=== PATIENT | female | born 1945 | race Caucasian/White ===

== ENCOUNTER 2022-08-02 09:18 | Observation (INO) ==
--- NOTE | 2022-08-02 09:26 | Emergency Department Note ---
Abdominal Pain HPI General Chief Complaint: Abdominal Pain Stated Complaint: gallbladder issue Time Seen by Provider: 08/02/22 09:26 Source: patient and family (Son) Mode of arrival: ambulatory Limitations: no limitations History of Present Illness HPI Narrative: Narrative: 77-year-old female presents to the emergency department complaining of right upper quadrant abdominal pain. States she was seen for this earlier and had an abdominal ultrasound on 07/01 which was interpreted as unremarkable. Patient followed up with her primary care provider who decided to order a HIDA scan. She had a HIDA scan on 310 which showed a nonfunctioning gallbladder. She presents to the emergency department because of continued right upper quadrant abdominal pain. Patient states that she has been unable to eat or drink much because of the pain. States she has lost 14 pounds. She rates her pain at the moment as a 4 on a 0-10 but states that this weekend it was a 10-12 on a 0-to-10 scale. She states that the pain is worse after she eats. Past medical history: Type 2 diabetes, hypertension, thyroid disease, neuropat hy. Allergies: Penicillin, gabapentin. Related Data Home Medications Medication Instructions Recorded Confirmed atenolol 25 mg tablet 25 mg PO DAILY 08/02/22 08/02/22 fluoxetine 10 mg capsule 10 mg PO DAILY 08/02/22 08/02/22 fluticasone furoate 100 1 inh inhalation DAILY 08/02/22 08/02/22 mcg-vilanterol 25 mcg/dose inhalation powder (Breo Ellipta) insulin detemir U-100 100 unit/mL 25 unit subcut HS 08/02/22 08/02/22 (3 mL) subcutaneous pen (Levemir FlexTouch U-100 Insulin) levothyroxine 88 mcg tablet 88 mcg PO ACB 08/02/22 08/02/22 losartan 100 1 tab PO DAILY 08/02/22 08/02/22 mg-hydrochlorothiazide 25 mg tablet metformin 1,000 mg tablet 1,000 mg PO BID 08/02/22 08/02/22 Previous Rx's Medication Instructions Recorded amitriptyline 10 mg tablet See Rx Instructions .Route 08/26/19 .COMPLEX ##90 albuterol sulfate 90 mcg/actuation See Rx Instructions .Route 04/07/20 aerosol inhaler .COMPLEX #90 grams blood sugar diagnostic (Contour #100 ea 05/13/20 Next Test Strips) insulin aspart U-100 100 unit/mL 5 unit (0.05 mL) subcut TID #15 mL 12/25/21 (3 mL) subcutaneous pen (Novolog FlexPen U-100 Insulin aspart) amlodipine 5 mg tablet See Rx Instructions .Route 03/25/22 .COMPLEX #90 tabs rosuvastatin 10 mg tablet (Crestor) 10 mg PO QDAY #90 tabs 03/25/22 spironolactone 100 mg tablet 100 mg PO QAM #90 tabs 04/06/22 omeprazole 40 mg capsule,delayed 40 mg PO BID #60 caps 07/16/22 release hydrocodone 10 mg-acetaminophen 1 tab PO Q4H PRN pain #180 tabs 07/22/22 325 mg tablet Allergies Allergy/AdvReac Type Severity Reaction Status Date / Time gabapentin Allergy Unknown Unknown Verified 08/02/22 09:24 Penicillins Allergy Unknown unk Verified 08/02/22 09:24 metals Allergy Unknown Unknown Uncoded 07/16/22 09:26 Review of Systems ROS ROS Narrative: Narrative: All systems ED: reviewed and negative except as stated. [facility] Narrative Patient History Narrative: Narrative: Medical/Surgical/Family History All Active Problems (Updated 08/02/22 @ 23:16 by Juan Givens MD) Acute cholecystitis (Acute) Cholecystitis, acute with cholelithiasis (Acute) Postprandial nausea (Acute) Impacted cerumen of left ear (Acute) RUQ abdominal pain (Acute) Chronic back pain (Chronic) Dermatitis (Acute) Irregular heart rhythm (Acute) Impacted cerumen of right ear (Acute) Post-nasal drip (Acute) Resistant hypertension (Chronic) Nonsuppurative otitis media of right ear (Acute) Obesity (Acute) Nasal lesion (Acute) Rib pain on left side (Acute) History of cataract surgery (Chronic ~07/2017) Edema of both feet (Chronic) Rash (Chronic) Thyroid disease (Chronic) Neurological disease (Chronic) Osteoporosis (Chronic) Arthritis (Chronic) Poor sleep (Chronic) Heart palpitations (Chronic) Arthralgia (Chronic) Memory loss (Chronic) Fatigue (Chronic) Depression (Chronic) GERD (gastroesophageal reflux disease) (Chronic) Hypertension (Chronic) Hyperlipidemia (Chronic) Hypothyroidism (Chronic) Alkaline phosphatase elevation (Chronic) Vitamin D deficiency (Chronic) Candidiasis of skin (Chronic) Knee pain (Chronic) 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) Coccygeal pain (Chronic) Type 2 diabetes mellitus with diabetic neuropathy (Chronic) Otitis externa (Chronic) Shortness of breath (Chronic) Stasis dermatitis (Chronic) Bradycardia (Chronic) Postmenopausal (Chronic) Encounter for therapeutic drug level monitoring (Chronic) Tobacco dependence (Chronic) Bronchitis, acute (Chronic) Chronic pain (Chronic) Medical History (Updated 08/02/22 @ 23:16 by Juan Givens MD) Alkaline phosphatase elevation Arthralgia Arthritis Bradycardia Bronchitis, acute Candidiasis of skin Chronic pain Coccygeal pain Depression Edema of both feet Encounter for therapeutic drug level monitoring Fatigue GERD (gastroesophageal reflux disease) Heart palpitations Hyperlipidemia Hypertension Hypothyroidism Knee pain Memory loss Neurological disease Osteoporosis Otitis externa Peripheral autonomic neuropathy due to diabetes mellitus Poor sleep Postmenopausal Rash Shortness of breath Stasis dermatitis Thyroid disease Tobacco dependence Type 2 diabetes mellitus with diabetic neuropathy Vitamin D deficiency Surgical History History of cataract surgery (~07/2017) Family History Mother HTN (hypertension) Diabetes Alcoholism Arthritis Osteoporosis Alzheimer disease Father , age 81 HTN (hypertension) Diabetes Alcoholism Glaucoma Heart disease Metastasis Grandmother Osteoporosis maternal Heart disease paternal HTN (hypertension) paternal Stroke paternal Grandfather Heart disease Alcoholism Social History Smoking Status: Current every day smoker Exam Narrative Narrative: Narrative: General Limitations: no limitations General appearance: Present alert and in distress Head Head: Present atraumatic and normocephalic Eye Eye: Present normal appearance; Absent scleral icterus ENT ENT: Present normal oropharynx Neck Neck: Present normal inspection Respiratory Respiratory: Present normal lung sounds bilaterally; Absent respiratory distress Cardiovascular Cardiovascular: Present regular rate and normal rhythm Adbominal Abdominal: Present soft and tenderness (Right upper quadrant) Extremities Extremities: Absent pedal edema or pretibial edema Back Back: Present normal inspection; Absent tenderness Neurological Neurological: Present alert and oriented X3 Psychiatric Psychiatric: Present normal affect and normal mood Skin Skin: Present warm (WNL) and dry Course Vital Signs Vital signs: Vital Signs Temperature 97.4 F 08/02/22 09:22 Pulse Rate 81 08/02/22 09:22 Respiratory Rate 18 08/02/22 09:22 Blood Pressure 163/63 08/02/22 09:22 Pulse Oximetry (%) 98 08/02/22 09:22 Oxygen Delivery Method Room Air 08/02/22 09:22 Temperature 98.0 F 08/02/22 19:19 Pulse Rate 57 L 08/02/22 19:19 Respiratory Rate 16 08/02/22 19:19 Blood Pressure 120/64 08/02/22 19:19 Pulse Oximetry (%) 96 08/02/22 19:19 Oxygen Delivery Method Room Air 08/02/22 19:19 [facility] MDM Narrative Medical decision making narrative: Narrative: Elderly female with right upper quadrant. Differential diagnosis includes acute biliary colic, acute cholecystitis, muscle strain, pancreatitis, other Patient's HIDA scan showed 1% ejection fraction whereas normal is greater than 35%. Case was discussed with general surgeon on-call who stated the patient had acute cholecystitis. Requested that I write holding orders and that he would see the patient and take her to the operating room. Sepsis Sepsis Identified: No Lab Data 08/02/22 10:03 Labs: Lab Results 08/02/22 08/02/22 08/02/22 Range/Units 10:03 10:03 10:06 WBC 11.9 H (4.5-11.0) K/mcL RBC 4.34 (3.59-5.38) M/mcL Hgb 13.5 (11.2-15.7) g/dL Hct 39.3 (34.1-44.9) % POC Hct 42.0 (36-48) MCV 90.6 (80.0-100.0) fL MCH 31.1 (26.0-34.0) pg MCHC 34.4 (31.0-36.0) g/dL RDW 13.2 (11.5-14.5) % Plt Count 363 (140-440) K/mcL MPV 9.3 (8.8-12.5) fL Immature Gran % (Auto) 0.5 (0.0-0.5) % Neut % (Auto) 71.7 (38.0-78.0) % Lymph % (Auto) 17.1 (15.5-49.0) % Alfalfa % (Auto) 9.9 (1.0-12.0) % Eos % (Auto) 0.4 (0.0-7.0) % Baso % (Auto) 0.4 (0.0-2.0) % Lymph # (Auto) 2.04 (1.50-4.80) K/mcL Alfalfa # (Auto) 1.18 H (0.10-0.90) K/mcL Eos # (Auto) 0.05 (0.00-0.70) K/mcL Baso # (Auto) 0.05 (0.00-0.30) K/mcL Immature Gran # 0.06 H (0.00-0.05) K/mcl Absolute Neutrophils 8.52 H (1.80-8.00) K/mcL POC Sodium 130 L (133-145) POC Potassium 4.5 (3.3-5.1) POC Chloride 98 (96-108) POC Total CO2 21.0 L (22-30) POC BUN 35 H (6-20) POC Creatinine 1.4 H (0.6-1.2) POC Glucose 97 (70-105) POC WB Ioniz Calcium 1.24 (1.16-1.32) Total Bilirubin 0.2 (0.1-1.0) mg/dL Direct Bilirubin < 0.2 (0-0.3) mg/dL AST 14 (<32) U/L ALT 6 (<40) U/L Alkaline Phosphatase 61 (39-117) U/L Total Protein 6.8 (5.9-8.4) gm/dL Albumin 3.9 (3.2-5.2) gm/dL Globulin 2.9 (2.2-3.7) gm/dL Lipase 18 (7-60) U/L Discharge Plan Patient/Caregiver Discharge Instructions Pt seen by HISTOLOGIST TECHNOLOGIST/PA only: No Clinical Impression: Acute cholecystitis Patient Disposition: Xfer As Outpt/Obs ([facility]) Condition: Fair Discharge Date/Time: 08/02/22 12:04
[2022-08-02] MEDS ORDERED: ONDANSETRON 4 MG/2 ML VIAL IV ONE (09:46)
[2022-08-02] MEDS ORDERED: morphine 2 MG/ML VIAL IV ONE (09:49)
[2022-08-02 10:11] LABS: POC Calcium, Ionized 1.24 (1.16-1.32); POC Creatinine 1.4 (0.6-1.2); POC Potassium 4.5 (3.3-5.1)
[2022-08-02 10:43] LABS: Basophils # (Auto) 0.05 K/mcL (0.00-0.30); Basophils % (Auto) 0.4 % (0.0-2.0); Eosinophils # (Auto) 0.05 K/mcL (0.00-0.70); Eosinophils % (Auto) 0.4 % (0.0-7.0); Hematocrit 39.3 % (34.1-44.9); Hemoglobin 13.5 g/dL (11.2-15.7); Lymphocytes # (Auto) 2.04 K/mcL (1.50-4.80); Lymphocytes % (Auto) 17.1 % (15.5-49.0); Mean Cell Volume 90.6 fL (80.0-100.0); Mean Corpuscular HGB Conc 34.4 g/dL (31.0-36.0); Mean Platelet Volume 9.3 fL (8.8-12.5); Monocytes # (Auto) 1.18 K/mcL (0.10-0.90); Monocytes % (Auto) 9.9 % (1.0-12.0); Neutrophils % (Auto) 71.7 % (38.0-78.0); Platelet Count 363 K/mcL (140-440); RBC 4.34 M/mcL (3.59-5.38); Red Cell Distribution Width 13.2 % (11.5-14.5); WBC 11.9 K/mcL (4.5-11.0)
[2022-08-02 11:06] LABS: ALT/SGPT 6 U/L (<40); AST/SGOT 14 U/L (<32); Albumin 3.9 gm/dL (3.2-5.2); Alkaline Phosphatase 61 U/L (39-117); Bilirubin,Direct < 0.2 mg/dL (0-0.3); Bilirubin,Total 0.2 mg/dL (0.1-1.0); Globulin 2.9 gm/dL (2.2-3.7)
[2022-08-02] MEDS ORDERED: ONDANSETRON 4 MG/2 ML VIAL IV PRN (11:33)
[2022-08-02] MEDS ORDERED: KETOROLAC 30 MG/ML VIAL IV PRN (11:33)
[2022-08-02] MEDS ORDERED: 0.9 % SODIUM CHLORIDE 1,000 ML IV ONE (11:35)
[2022-08-02] MEDS ORDERED: 0.9 % SODIUM CHLORIDE 1,000 ML IV SCH (11:45)
[2022-08-02] MEDS ORDERED: CEFEPIME 2 GM VIAL IV SCH ×2 (14:00→23:00)
--- NOTE | 2022-08-02 14:01 | General Surg History&Physical ---
HPI History of Present Illness Patient information: Note initiated : 08/02/22 at 1:51 pm Service Date, if different from initiated Date: [] Patient: Peace Balbuena a 77 y/o F admitted on 08/02/22 for gallbladder issue/Cholecystitis. Chief Complaint: [] Chief complaint: Right upper quadrant pain with nausea vomiting History of present illness: Ms. Balbuena is a 77 year old F with history of recurrent postprandial abdominal pain for at least 2 months. She had pain with nausea and vomiting after any p.o. intake including liquids and solids. She estimates that she has lost about 14 pounds. She was seen by her primary provider in early June and an ultrasound was ordered. The ultrasound was interpreted as being negative for abnormality including inflammation or stones. She had a HIDA scan which showed an ejection fraction of 1%. Patient has continued to be symptomatic with all p.o. intake and has severe right upper quadrant pain and tenderness. She has acute cholecystitis with dehydration and is scheduled for laparoscopic cholecystectomy in the morning. Constitutional Constitutional: Present anorexia, fatigue, lethargy, malaise, weakness and w eight loss (14+ pounds) Gastrointestinal Gastrointestinal: Present abdominal pain, bloating, change in bowel habits, constipation, early satiety, heartburn, nausea and vomiting Neurological Neurological: Present numbness, paresthesias, restless legs, sensory deficit and tingling Allergic/Immunologic Allergic/Immunologic: Absent tongue swelling, throat swelling, uticaria, wheezing or lip swelling PFSH PFSH All Active Problems (Updated 08/02/22 @ 13:59 by Jerri Price MD) Cholecystitis, acute with cholelithiasis (Acute) Postprandial nausea (Acute) Impacted cerumen of left ear (Acute) RUQ abdominal pain (Acute) Chronic back pain (Chronic) Dermatitis (Acute) Irregular heart rhythm (Acute) Impacted cerumen of right ear (Acute) Post-nasal drip (Acute) Resistant hypertension (Chronic) Nonsuppurative otitis media of right ear (Acute) Obesity (Acute) Nasal lesion (Acute) Rib pain on left side (Acute) History of cataract surgery (Chronic ~07/2017) Edema of both feet (Chronic) Rash (Chronic) Thyroid disease (Chronic) Neurological disease (Chronic) Osteoporosis (Chronic) Arthritis (Chronic) Poor sleep (Chronic) Heart palpitations (Chronic) Arthralgia (Chronic) Memory loss (Chronic) Fatigue (Chronic) Depression (Chronic) GERD (gastroesophageal reflux disease) (Chronic) Hypertension (Chronic) Hyperlipidemia (Chronic) Hypothyroidism (Chronic) Alkaline phosphatase elevation (Chronic) Vitamin D deficiency (Chronic) Candidiasis of skin (Chronic) Knee pain (Chronic) 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) Coccygeal pain (Chronic) Type 2 diabetes mellitus with diabetic neuropathy (Chronic) Otitis externa (Chronic) Shortness of breath (Chronic) Stasis dermatitis (Chronic) Bradycardia (Chronic) Postmenopausal (Chronic) Encounter for therapeutic drug level monitoring (Chronic) Tobacco dependence (Chronic) Bronchitis, acute (Chronic) Chronic pain (Chronic) Medical History (Updated 08/02/22 @ 13:59 by Jerri Price MD) Alkaline phosphatase elevation Arthralgia Arthritis Bradycardia Bronchitis, acute Candidiasis of skin Chronic pain Coccygeal pain Depression Edema of both feet Encounter for therapeutic drug level monitoring Fatigue GERD (gastroesophageal reflux disease) Heart palpitations Hyperlipidemia Hypertension Hypothyroidism Knee pain Memory loss Neurological disease Osteoporosis Otitis externa Peripheral autonomic neuropathy due to diabetes mellitus Poor sleep Postmenopausal Rash Shortness of breath Stasis dermatitis Thyroid disease Tobacco dependence Type 2 diabetes mellitus with diabetic neuropathy Vitamin D deficiency Surgical History History of cataract surgery (~07/2017) Family History Mother HTN (hypertension) Diabetes Alcoholism Arthritis Osteoporosis Alzheimer disease Father , age 81 HTN (hypertension) Diabetes Alcoholism Glaucoma Heart disease Metastasis Grandmother Osteoporosis maternal Heart disease paternal HTN (hypertension) paternal Stroke paternal Grandfather Heart disease Alcoholism Social History marital status: occupational status: disabled smoking status: Current every day smoker MEDS/ALLERGIES Home Medications and Allergies Home Medications Medication Instructions Recorded Confirmed Type amitriptyline 10 mg tablet See Rx Instructions .Route 08/26/19 08/02/22 Rx .COMPLEX ##90 albuterol sulfate 90 mcg/actuation See Rx Instructions .Route 04/07/20 08/02/22 Rx aerosol inhaler .COMPLEX #90 grams blood sugar diagnostic (Contour #100 ea 05/13/20 08/02/22 Rx Next Test Strips) insulin aspart U-100 100 unit/mL 5 unit (0.05 mL) subcut TID #15 mL 12/25/21 08/02/22 Rx (3 mL) subcutaneous pen (Novolog FlexPen U-100 Insulin aspart) amlodipine 5 mg tablet See Rx Instructions .Route 03/25/22 08/02/22 Rx .COMPLEX #90 tabs rosuvastatin 10 mg tablet (Crestor) 10 mg PO QDAY #90 tabs 03/25/22 08/02/22 Rx spironolactone 100 mg tablet 100 mg PO QAM #90 tabs 04/06/22 08/02/22 Rx omeprazole 40 mg capsule,delayed 40 mg PO BID #60 caps 07/16/22 08/02/22 Rx release hydrocodone 10 mg-acetaminophen 1 tab PO Q4H PRN pain #180 tabs 07/22/22 08/02/22 Rx 325 mg tablet atenolol 25 mg tablet 25 mg PO DAILY 08/02/22 08/02/22 History fluoxetine 10 mg capsule 10 mg PO DAILY 08/02/22 08/02/22 History fluticasone furoate 100 1 inh inhalation DAILY 08/02/22 08/02/22 History mcg-vilanterol 25 mcg/dose inhalation powder (Breo Ellipta) insulin detemir U-100 100 unit/mL 25 unit subcut HS 08/02/22 08/02/22 History (3 mL) subcutaneous pen (Levemir FlexTouch U-100 Insulin) levothyroxine 88 mcg tablet 88 mcg PO ACB 08/02/22 08/02/22 History losartan 100 1 tab PO DAILY 08/02/22 08/02/22 History mg-hydrochlorothiazide 25 mg tablet metformin 1,000 mg tablet 1,000 mg PO BID 08/02/22 08/02/22 History Allergies Allergy/AdvReac Type Severity Reaction Status Date / Time gabapentin Allergy Unknown Unknown Verified 08/02/22 09:24 Penicillins Allergy Unknown unk Verified 08/02/22 09:24 metals Allergy Unknown Unknown Uncoded 07/16/22 09:26 Physical Examination Vital Signs Vital signs: Temp Pulse Resp BP Pulse Ox O2 Del Method 98.1 F 58 L 16 158/58 96 Room Air 08/02/22 12:00 08/02/22 12:00 08/02/22 12:00 08/02/22 12:00 08/02/22 12:00 08/02/22 12:00 General physical appearance General physical exam: well developed, well nourished, no distress, moderate pain and chronically ill Eyes Eye exam: PERRL and normal ocular movement ENT ENT exam: normal mucosa, no hearing loss, no congestion and poor senior care Head Head exam IM: Present atraumatic, normal inspection and normocephalic Neck Neck exam: no masses, no bruits, trachea midline, no lymphadenopathy and no venous distension Cardiovascular Cardiovascular exam IM: Present normal rate and rhythm, RRR, +S1 and +S2; Absent JVD or tachycardia Respiratory Respiratory exam: normal expansion, normal respiratory effort and clear to auscultation Abdomen Abdomen: Present tender (Exquisite tenderness right upper quadrant and epigast rium) Integumentary Integumentary: Present no rash, no growths and no abnormal pigmentation Neurologic Neurologic: Present normal coordination and deep tendon reflexes Musculoskeletal Musculoskeletal: Present normal gait and normal posture Psychiatric Psychiatric: Present oriented to time, oriented to person, oriented to place, speech is normal and memory intact Results Labs 08/02/22 10:03 Labs: Abnormal lab results 08/02/22 08/02/22 Range/Units 10:03 10:06 WBC 11.9 H (4.5-11.0) K/mcL [place] # (Auto) 1.18 H (0.10-0.90) K/mcL Immature Gran # 0.06 H (0.00-0.05) K/mcl Absolute Neutrophils 8.52 H (1.80-8.00) K/mcL POC Sodium 130 L (133-145) POC Total CO2 21.0 L (22-30) POC BUN 35 H (6-20) POC Creatinine 1.4 H (0.6-1.2) Diabetes panel 08/02/22 Range/Units 10:03 AST 14 (<32) U/L ALT 6 (<40) U/L Alkaline Phosphatase 61 (39-117) U/L Total Protein 6.8 (5.9-8.4) gm/dL Albumin 3.9 (3.2-5.2) gm/dL Calcium panel 08/02/22 Range/Units 10:03 Albumin 3.9 (3.2-5.2) gm/dL Adrenal panel 08/02/22 Range/Units 10:03 Total Bilirubin 0.2 (0.1-1.0) mg/dL AST 14 (<32) U/L ALT 6 (<40) U/L Alkaline Phosphatase 61 (39-117) U/L Total Protein 6.8 (5.9-8.4) gm/dL Albumin 3.9 (3.2-5.2) gm/dL All other labs normal. A/P Assessment and plan (1) Cholecystitis, acute with cholelithiasis: Status: Acute (2) Hypothyroidism: Status: Chronic Qualifiers: Hypothyroidism type: unspecified Qualified Code(s): E03.9 - Hypothyroidism, unspecified (3) Peripheral autonomic neuropathy due to diabetes mellitus: Status: Chronic Qualifiers: Diabetes mellitus type: type 2 Qualified Code(s): E11.43 - Type 2 diabetes mellitus with diabetic autonomic (poly)neuropathy (4) Type 2 diabetes mellitus with diabetic neuropathy: Status: Chronic Qualifiers: Diabetes mellitus alf insulin use: without middle school history teacher use Qualified Code(s): E11.40 - Type 2 diabetes mellitus with diabetic neuropathy, unspecified Plan Cefepime 2 g IVevery 8 Dilaudid 1 mg IV every 2 hours as needed Promethazine 12.5 mg IV every 4 hours nausea Normal saline 1 L now and 150 cc/h Full liquids as tolerated N.p.o. after midnight Consent for laparoscopic cholecystectomy to be performed tomorrow Sepsis Sepsis Identified: No Time Spent With Patient Time: Total time spent is greater than 50% in coordination of care (as documented) at patient's floor/unit and/or counseling patient:
[2022-08-02] MEDS ORDERED: HYDROmorphone 1 MG/ML SYRINGE IV PRN (14:16)
[2022-08-02] MEDS ORDERED: PROMETHAZINE 25 MG/ML VIAL IV PRN (14:17)
[2022-08-02] MEDS ORDERED: ALBUTEROL SULFATE 60 PUFF INHALER INH PRN (14:30)
--- NOTE | 2022-08-02 14:44 | XRay Report ---
HISTORY: Preop for cholecystectomy FINDINGS: The lungs are clear. The heart, mediastinum, tyra and pleura are normal. There has been no significant change since 06/17/21. IMPRESSION: Normal chest. Interpreted and Authenticated by: Daniel Dao 08/02/22
[2022-08-02] MEDS ORDERED: DEXTROSE 31 GM ORAL.SUSP PO PRN (14:56)
[2022-08-02] MEDS ORDERED: DEXTROSE 50% 50 ML VIAL IV PRN (14:56)
[2022-08-02] MEDS: 0.9 % SODIUM CHLORIDE 1,000 ML IV SCH ×2 (16:43→23:27)
[2022-08-02] MEDS: INSULIN LISPRO 1 UNIT/0.01 ML UNIT SQ SCH ×2 (16:44→21:38)
[2022-08-02] MEDS: amLODIPine 5 MG TABLET PO SCH (16:44)
[2022-08-02] MEDS ORDERED: INSULIN LISPRO 1 UNIT/0.01 ML UNIT SQ SCH (17:30)
--- NOTE | 2022-08-02 18:40 | EKG ---
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
[2022-08-02] MEDS: AMITRIPTYLINE 10 MG TABLET PO SCH (21:38)
[2022-08-02] MEDS: INSULIN GLARGINE, HUMAN 1 UNIT/0.01 ML SQ SCH (21:39)
[2022-08-02] MEDS: ACETAMINOPHEN 500 MG/50 ML BAG IV PRN (23:27)
[2022-08-03] MEDS ORDERED: IPRATROPIUM/ALBUTEROL 3 ML AMPUL.NEB NEB PRN ×2 (06:00→13:41)
[2022-08-03] MEDS ORDERED: SCOPOLAMINE 1 PATCH PATCH TOPICAL PRN (06:00)
[2022-08-03] MEDS: 0.9 % SODIUM CHLORIDE 1,000 ML IV SCH ×4 (06:05→22:49)
[2022-08-03 06:32] LABS: Basophils # (Auto) 0.05 K/mcL (0.00-0.30); Basophils % (Auto) 0.5 % (0.0-2.0); Eosinophils # (Auto) 0.08 K/mcL (0.00-0.70); Eosinophils % (Auto) 0.8 % (0.0-7.0); Hematocrit 34.4 % (34.1-44.9); Hemoglobin 11.5 g/dL (11.2-15.7); Lymphocytes # (Auto) 3.33 K/mcL (1.50-4.80); Lymphocytes % (Auto) 34.8 % (15.5-49.0); Mean Cell Volume 91.7 fL (80.0-100.0); Mean Corpuscular HGB Conc 33.4 g/dL (31.0-36.0); Mean Platelet Volume 9.4 fL (8.8-12.5); Monocytes # (Auto) 0.92 K/mcL (0.10-0.90); Monocytes % (Auto) 9.6 % (1.0-12.0); Neutrophils % (Auto) 53.9 % (38.0-78.0); Platelet Count 324 K/mcL (140-440); RBC 3.75 M/mcL (3.59-5.38); Red Cell Distribution Width 13.2 % (11.5-14.5); WBC 9.6 K/mcL (4.5-11.0)
[2022-08-03 07:10] LABS: ALT/SGPT < 5 U/L (<40); AST/SGOT 13 U/L (<32); Albumin 3.3 gm/dL (3.2-5.2); Albumin/Globulin Ratio 1.3 (1.0-2.3); Alkaline Phosphatase 48 U/L (39-117); Bilirubin,Direct < 0.2 mg/dL (0-0.3); Bilirubin,Total 0.2 mg/dL (0.1-1.0); Blood Urea Nitrogen 19 mg/dL (8-23); Calcium 8.9 mg/dL (8.6-10.4); Carbon Dioxide 21 mmol/L (22-30); Chloride 105 mmol/L (96-108); Globulin 2.5 gm/dL (2.2-3.7); Glomerular Filtration Rate 71; Glucose 61 mg/dL (70-105); Lactate Dehydrogenase 116 U/L (135-225); Phosphorous 2.2 mg/dL (2.5-4.5); Triglycerides 124 mg/dL (<150); Uric Acid 5.9 mg/dL (2.5-8.0)
[2022-08-03] MEDS: INSULIN LISPRO 1 UNIT/0.01 ML UNIT SQ SCH ×4 (07:39→20:41)
[2022-08-03] MEDS: LEVOTHYROXINE 88 MCG TABLET PO SCH (08:08)
[2022-08-03] MEDS: SPIRONOLACTONE 25 MG TABLET PO SCH (08:08)
[2022-08-03] MEDS: FLUoxetine HCL 10 MG CAPSULE PO SCH (08:08)
[2022-08-03] MEDS: ATENOLOL 25 MG TABLET PO SCH (08:08)
[2022-08-03] MEDS: HYDROCHLOROTHIAZIDE 25 MG TABLET PO SCH (08:08)
[2022-08-03] MEDS: LOSARTAN 50 MG TABLET PO SCH (08:08)
[2022-08-03] MEDS: amLODIPine 5 MG TABLET PO SCH (08:08)
[2022-08-03] MEDS: FLUTICASONE FUROATE VILANTEROL INH SCH (08:14)
[2022-08-03] MEDS ORDERED: LIDOCAINE HCL/PF 100 MG/5 ML SYRINGE IV ONE (12:31)
[2022-08-03] MEDS ORDERED: SUCCINYLCHOLINE 20 MG/ML ML IV ONE (12:31)
[2022-08-03] MEDS ORDERED: PROPOFOL 200 MG/20 ML VIAL IV ONE (12:31)
[2022-08-03] MEDS ORDERED: GLYCOPYRROLATE 0.2 MG/ML VIAL IV ONE (12:31)
[2022-08-03] MEDS ORDERED: MIDAZOLAM 2 MG/2 ML VIAL ONE (12:31)
[2022-08-03] MEDS ORDERED: DEXAMETHASONE 10 MG/ML VIAL ONE (12:31)
[2022-08-03] MEDS ORDERED: MAGNESIUM SULFATE 2 GM/50 ML BAG IV ONE (12:31)
[2022-08-03] MEDS ORDERED: ROCURONIUM 10 MG/ML ML IV ONE (12:31)
[2022-08-03] MEDS ORDERED: ONDANSETRON 4 MG/2 ML VIAL ONE (12:31)
[2022-08-03] MEDS ORDERED: fentaNYL 100 MCG/2 ML VIAL IV ONE (12:31)
[2022-08-03] MEDS ORDERED: CEFEPIME 2 GM VIAL IV SCH (12:45)
--- NOTE | 2022-08-03 13:38 | Brief Operative Note ---
Brief Operative Note Date of procedure: 08/03/22 Pre-op diagnosis: acute cholecystitis Post-op diagnosis: other (acute and chronic cholecystitis) Procedure: laparoscopic cholecystectomy Grafts/Implants: No Anesthesia: GETA Findings: dilated gall bladder Complications: none Surgeon: Jerri Price Estimated blood loss (cc): 5 Specimens Removed/Pathology: none sent Condition: stable Disposition: PACU
[2022-08-03] MEDS ORDERED: fentaNYL 100 MCG/2 ML VIAL IV PRN (13:41)
[2022-08-03] MEDS ORDERED: ONDANSETRON 4 MG/2 ML VIAL IV PRN (13:41)
[2022-08-03] MEDS ORDERED: ACETAMINOPHEN 1,000 MG/100 ML BAG IV ONE (13:54)
[2022-08-03] MEDS: ACETAMINOPHEN 500 MG/50 ML BAG IV PRN (18:59)
[2022-08-03] MEDS: INSULIN GLARGINE, HUMAN 1 UNIT/0.01 ML SQ SCH (20:40)
[2022-08-03] MEDS: AMITRIPTYLINE 10 MG TABLET PO SCH (20:40)
[2022-08-03] MEDS: CEFEPIME 2 GM VIAL IV SCH (21:16)
[2022-08-04] MEDS: ACETAMINOPHEN 500 MG/50 ML BAG IV PRN (02:25)
[2022-08-04] MEDS: CEFEPIME 2 GM VIAL IV SCH ×2 (05:30→14:20)
[2022-08-04] MEDS: 0.9 % SODIUM CHLORIDE 1,000 ML IV SCH (05:40)
[2022-08-04 06:54] LABS: ALT/SGPT 17 U/L (<40); AST/SGOT 34 U/L (<32); Albumin 3.3 gm/dL (3.2-5.2); Albumin/Globulin Ratio 1.4 (1.0-2.3); Alkaline Phosphatase 47 U/L (39-117); Bilirubin,Direct < 0.2 mg/dL (0-0.3); Bilirubin,Total 0.2 mg/dL (0.1-1.0); Blood Urea Nitrogen 11 mg/dL (8-23); Calcium 8.5 mg/dL (8.6-10.4); Carbon Dioxide 20 mmol/L (22-30); Chloride 101 mmol/L (96-108); Globulin 2.4 gm/dL (2.2-3.7); Glomerular Filtration Rate 71; Glucose 271 mg/dL (70-105); Lactate Dehydrogenase 155 U/L (135-225); Phosphorous 0.9 mg/dL (2.5-4.5); Triglycerides 66 mg/dL (<150); Uric Acid 3.5 mg/dL (2.5-8.0)
[2022-08-04] MEDS: LEVOTHYROXINE 88 MCG TABLET PO SCH (07:27)
[2022-08-04] MEDS: INSULIN LISPRO 1 UNIT/0.01 ML UNIT SQ SCH ×2 (07:27→11:15)
[2022-08-04] MEDS: ATENOLOL 25 MG TABLET PO SCH (08:44)
[2022-08-04] MEDS: amLODIPine 5 MG TABLET PO SCH (08:44)
[2022-08-04] MEDS: SPIRONOLACTONE 25 MG TABLET PO SCH (08:45)
[2022-08-04] MEDS: LOSARTAN 50 MG TABLET PO SCH (08:45)
[2022-08-04] MEDS: FLUoxetine HCL 10 MG CAPSULE PO SCH (08:45)
[2022-08-04] MEDS: FLUTICASONE FUROATE VILANTEROL INH SCH (08:45)
[2022-08-04] MEDS: HYDROCHLOROTHIAZIDE 25 MG TABLET PO SCH (08:45)
[2022-08-04] MEDS ORDERED: NEUTRA PHOS 1 PACKET PO ONE (10:56)
--- NOTE | 2022-08-04 13:27 | Discharge Summary ---
Discharge Provider Provider IMPORTANT FOLLOW-UP INFORMATION FOR PCP: Patient information: Note initiated : 08/04/22 at 1:25 pm Service Date, if different from initiated Date: [] Patient: Peace Balbuena 77 y/o F admitted on 08/02/22 for gallbladder issue/Cholecystitis. Chief Complaint: [] Date of admission: 08/02/22 11:55 Discharge date: 08/04/22 Primary care physician: JOSH Oviedo Admitting clinician: Jerri rPice Attending physician on admission: Jerri Price Consults: 08/02/22 Consult to Physician [CONS] Stat Comment: Consulting Provider: Jerri Price Reason For Exam: Physician to Consult Attending physician on discharge: Jerri Price Discharging clinician: Jerri Price COURSE Hospital Course Hospital course: 77-year-old female admitted with a 2-month history of recurrent postprandial nausea and vomiting. Evaluation in the ER revealed cholelithiasis with acute cholecystitis. She underwent laparoscopic cholecystectomy on yesterday. She has been stable and has no complaints. Her liver panel is normal. She is tolerating diet without difficulty. Patient is stable for discharge home. Discharge diagnosis: Acute cholecystitis with cholelithiasis Secondary discharge diagnosis: Hypertension Depression Diabetes mellitus type 2 Reason for admission: Acute cholecystitis with cholelithiasis Procedures: Laparoscopic cholecystectomy Pertinent studies/significant findings: Upper abdominal ultrasound Complications: None Time Spent with Patient Time attestation: Total time spent providing and/or coordinating discharge services: Time spent: Less than 30 minutes Physical Examination Vital Signs Vital signs: Temp Pulse Resp BP Pulse Ox O2 Del Method O2 Flow Rate 98.6 F 50 L 18 138/54 100 Room Air 2 08/04/22 12:00 08/04/22 12:00 08/04/22 12:00 08/04/22 12:00 08/04/22 12:00 08/04/22 12:00 08/04/22 04:00 General physical appearance General physical exam: well developed, well nourished, no distress and moderate pain Eyes Eye exam: PERRL and normal ocular movement ENT ENT exam: normal mucosa and no congestion Head Head exam IM: Present atraumatic, normal inspection and normocephalic Neck Neck exam: no masses, no bruits, trachea midline, no lymphadenopathy and no venous distension Cardiovascular Cardiovascular exam IM: Present normal rate and rhythm, JVD, RRR, +S1 and +S2; Absent gallop Respiratory Respiratory exam: normal expansion, normal respiratory effort and clear to auscultation Abdomen Abdomen: Present soft, tender (Moderate tenderness around port sites), bowel sounds (Normal active bowel sounds) and surgical scars (Port sites are clear) Integumentary Integumentary: Present no rash, no growths and no abnormal pigmentation Neurologic Neurologic: Present normal coordination and normal sensation Musculoskeletal Musculoskeletal: Present normal gait and normal posture Psychiatric Psychiatric: Present oriented to time, oriented to person, oriented to place, speech is normal and memory intact Discharge Plan Patient/Caregiver Discharge Instructions Activity: increase activity as tolerated Diet: Low Fat and Consistent Carbohydrate Instructions: Laparoscopic Cholecystectomy (DC) Prescriptions: New Phospha 250 Neutral 250 mg tablet 2 tab PO ONCE Qty: 20 0RF No Action (DME) Contour Next Test Strips Strip See Rx Instructions .ROUTE .MEDSUPPLY Qty: 100 12RF Rx Instructions: Test blood sugars TID amitriptyline 10 mg tablet See Rx Instructions .ROUTE .COMPLEX Qty: 90 1RF Dose Instruction: TAKE 1 TABLET BY MOUTH EVERY NIGHT AT BEDTIME Rx Instructions: TAKE 1 TABLET BY MOUTH EVERY NIGHT AT BEDTIME albuterol sulfate 90 mcg/actuation HFA aerosol inhaler See Rx Instructions .ROUTE .COMPLEX Qty: 90 3RF Dose Instruction: INHALE 2 PUFFS BY MOUTH EVERY 4 HOURS NEEDED FOR SHORTNESS OF BREATH OR WHEEZING Rx Instructions: INHALE 2 PUFFS BY MOUTH EVERY 4 HOURS NEEDED FOR SHORTNESS OF BREATH OR WHEEZING spironolactone 100 mg tablet 100 mg PO QAM Qty: 90 2RF hydrocodone-acetaminophen 10-325 mg tablet 1 tab PO Q4H PRN (Reason: pain) Qty: 180 0RF amlodipine 5 mg tablet See Rx Instructions .ROUTE .COMPLEX Qty: 90 1RF Dose Instruction: TAKE 1 TABLET BY MOUTH EVERY DAY Rx Instructions: TAKE 1 TABLET BY MOUTH EVERY DAY rosuvastatin [Crestor] 10 mg tablet 10 mg PO QDAY Qty: 90 1RF insulin aspart U-100 [Novolog FlexPen U-100 Insulin] 100 unit/mL (3 mL) insulin pen 5 unit SUB-Q TID Qty: 15 3RF omeprazole 40 mg capsule,delayed release(DR/EC) 40 mg PO BID Qty: 60 5RF fluoxetine 10 mg capsule 10 mg PO DAILY Rx Instructions: TAKE 1 CAPSULE BY MOUTH EVERY DAY atenolol 25 mg tablet 25 mg PO DAILY Rx Instructions: TAKE 1 TABLET BY MOUTH EVERY DAY fluticasone furoate-vilanterol [Breo Ellipta] 100-25 mcg/dose blister with device 1 inh inhalation DAILY Rx Instructions: INHALE 1 PUFF BY MOUTH EVERY DAY losartan-hydrochlorothiazide 100-25 mg tablet 1 tab PO DAILY Rx Instructions: TAKE 1 TABLET BY MOUTH EVERY DAY levothyroxine 88 mcg tablet 88 mcg PO ACB Rx Instructions: TAKE 1 TABLET BY MOUTH EVERY DAY Levemir FlexTouch U-100 Insuln 100 unit/mL (3 mL) insulin pen 25 unit subcut HS Rx Instructions: INJECT 25 UNITS UNDER THE SKIN EVERY NIGHT AT BEDTIME metformin 1,000 mg tablet 1,000 mg PO BID Rx Instructions: TAKE 1 TABLET BY MOUTH TWICE DAILY Prescription drug monitoring program results: PDMP not reviewed Follow Up Plan Follow up with: Cisco Hogue ARNP [Primary Care Provider] - (as needed.) Jerri Price MD [Physician] - (The office will call you with a two week surgical follow up appointment date/time. If you have not heard from them by TuesdayAugust 06, please call them and schedule an appointment.) Patient Disposition: Home, Self-Care Prognosis: Good Rehab Potential: Good I certify that the patient requires SNF services: No Overall status at discharge: patient is progressing back to baseline Discharge Orders: Discharge Order (Routine); Ordered 08/04/22 Ordered By: Jerri Price Pending Pending Pending: Resuscitation Status Resuscitate (Full Code) Diet Regular Diet Start TueAug 04 1128 Amitriptyline HCl (Amitriptyline 10 Mg Tablet) 10 mg PO [facility] Last Admin: 08/03/22 20:40 Dose: 10 mg Documented By: Admin: 08/02/22 21:38 Dose: 10 mg Documented By: TUYET Amlodipine Besylate (Amlodipine 5 Mg Tablet) 5 mg PO DAILY [facility] Last Admin: 08/04/22 08:44 Dose: 5 mg Documented By: [email or web address] Admin: 08/03/22 08:08 Dose: 5 mg Documented By: Admin: 08/02/22 16:44 Dose: 5 mg Documented By: DOMENIC Atenolol (Atenolol 25 Mg Tablet) 25 mg PO DAILY [facility] Last Admin: 08/04/22 08:44 Dose: 25 mg Documented By: Admin: 08/03/22 08:08 Dose: 25 mg Documented By: DOMENIC Cefepime HCl (Cefepime 2 Gm Vial) 2 gm IV Q8H [facility]; Protocol Last Admin: 08/04/22 05:30 Dose: 2 gm Documented By: Admin: 08/03/22 21:16 Dose: 2 gm Documented By: TUYET Diagnostic Test (Pha) (Accu-Chek 1 Each Strip) 1 each FS ACHS [facility] Last Admin: 08/04/22 11:15 Dose: 1 each Documented By: Admin: 08/04/22 07:24 Dose: 1 each Documented By: Admin: 08/03/22 20:30 Dose: 1 each Documented By: Admin: 08/03/22 17:34 Dose: 1 each Documented By: Admin: 08/03/22 11:53 Dose: 1 each Documented By: Admin: 08/03/22 07:39 Dose: 1 each Documented By: Admin: 08/02/22 21:31 Dose: 1 each Documented By: Admin: 08/02/22 16:44 Dose: 1 each Documented By: DOMENIC Fluoxetine HCl (Fluoxetine Hcl 10 Mg Capsule) 10 mg PO DAILY [facility] Last Admin: 08/04/22 08:45 Dose: 10 mg Documented By: [email or web address] Admin: 08/03/22 08:08 Dose: 10 mg Documented By: DOMENIC Hydrochlorothiazide (Hydrochlorothiazide 25 Mg Tablet) 25 mg PO DAILY [facility] Last Admin: 08/04/22 08:45 Dose: 25 mg Documented By: [email or web address] Admin: 08/03/22 08:08 Dose: 25 mg Documented By: DOMENIC Acetaminophen (Ofirmev) 500 mg in 50 mls @ 100 mls/hr IV Q6HP PRN; Protocol PRN Reason: PAIN/FEVER > 101 Last Infusion: 08/04/22 02:55 Dose: 0 mls/hr Documented By: Admin: 08/04/22 02:25 Dose: 100 mls/hr Documented By: Infusion: 08/03/22 19:30 Dose: 0 mls/hr Documented By: Admin: 08/03/22 18:59 Dose: 100 mls/hr Documented By: Infusion: 08/02/22 23:57 Dose: 0 mls/hr Documented By: Admin: 08/02/22 23:27 Dose: 100 mls/hr Documented By: TUYTE Insulin Glargine (Insulin Glargine, Human 1 Unit/0.01 Ml) 25 unit SQ HS [facility] Last Admin: 08/03/22 20:40 Dose: 25 units Documented By: Admin: 08/02/22 21:39 Dose: 25 units Documented By: TUYET Insulin Human Lispro (Insulin Lispro 1 Unit/0.01 Ml Unit) 0 unit SQ ACHS [facility]; Protocol Last Admin: 08/04/22 11:15 Dose: 4 units Documented By: Admin: 08/04/22 07:27 Dose: 6 units Documented By: Admin: 08/03/22 20:41 Dose: 8 units Documented By: Admin: 08/03/22 17:35 Dose: Not Given Documented By: Admin: 08/03/22 11:53 Dose: Not Given Documented By: Admin: 08/03/22 07:39 Dose: Not Given Documented By: Admin: 08/02/22 21:38 Dose: 2 units Documented By: Admin: 08/02/22 16:44 Dose: Not Given Documented By: DOMENIC Levothyroxine Sodium (Levothyroxine 88 Mcg Tablet) 88 mcg PO ACB [facility] Last Admin: 08/04/22 07:27 Dose: 88 mcg Documented By: Admin: 08/03/22 08:08 Dose: 88 mcg Documented By: DOMENIC Losartan Potassium (Losartan 50 Mg Tablet) 100 mg PO DAILY [facility] Last Admin: 08/04/22 08:45 Dose: 100 mg Documented By: Admin: 08/03/22 08:08 Dose: 100 mg Documented By: DOMENIC Ondansetron HCl (Ondansetron 4 Mg/2 Ml Vial) 4 mg IV Q6HP PRN PRN Reason: Nausea And Vomiting Last Admin: 08/02/22 23:27 Dose: 4 mg Documented By: TUYET Fluticasone Furoate- Vilanterol [Breo Ellipta] 100-25 Mcg Inhaler 1 dose INH DAILY [facility] Last Admin: 08/04/22 08:45 Dose: Not Given Documented By: Admin: 08/03/22 08:14 Dose: Not Given Documented By: DOMENIC Spironolactone (Spironolactone 25 Mg Tablet) 100 mg PO DAILY [facility] Last Admin: 08/04/22 08:45 Dose: 100 mg Documented By: Admin: 08/03/22 08:08 Dose: 100 mg Documented By: DOMENIC Shift Summary 08/04/22 05:23 Shift Summary by Maci Steiner Assumed Pt care @ 1830. Pt is alert and oriented x 4 and in no apparent signs and symptoms of distress. Pt reports pain and nausea, PRN Ofirmev @ 1930 and 0255 was given. Pt call light within reach and whiteboard updated. Pt on RA with saturations in the 90's. Pt PIV on RFA is patent infusing NS @ 150 ml/hr. Pt lap site x4 is clean, dry and intact with old drainage under tegaderm dressing. Pt tolerated ambulation to and from the bathroom with steady gait. Pt vitals stable with urine output greater than 30 ml/hr. No acute events all night. Initialized on 08/04/22 05:23 - END OF NOTE
--- NOTE | 2022-08-16 09:43 | Operative Note ---
DATE OF OPERATION: 08/03/2022 DATE OF PROCEDURE: 08/03/2022 PREOPERATIVE DIAGNOSIS: Acute cholecystitis. POSTOPERATIVE DIAGNOSES: Acute and chronic cholecystitis. PROCEDURE: Laparoscopic cholecystectomy. SURGEON: Jerri Price M.D. FINDINGS: Dilated gallbladder. DESCRIPTION OF PROCEDURE: Under general anesthesia, the patient's abdomen was prepped and draped in a sterile field. Timeout procedure was carried out as per protocol. Supraumbilical midline incision was made and Veress needle was inserted. The abdomen was insufflated with 2 liters of CO2. A 12 mm port was placed. Laparoscope was placed. A dilated gallbladder was noted. Under videoscopic guidance, a 12 mm port and two 5 mm ports were placed in the right subcostal region. Gallbladder was grasped and positioned. Cystic duct and cystic artery were isolated and dissected. Cystic duct was clipped with five clips close to the gallbladder and divided. Cystic artery had two branches, which were clipped on the wall of the gallbladder with four clips and divided. The gallbladder was then from the hepatic bed using electrocautery and blunt dissection. There was minimal blood loss. Gallbladder was placed in an Endopouch and retrieved. Hemostasis was achieved. No drain was needed. CO2 was allowed to escape from the abdomen and the ports were removed. The fascia at the umbilicus was closed with interrupted 0 Vicryl. Skin incisions were closed with avis. The patient tolerated the procedure well. She was awakened and transferred to the postanesthetic care unit in satisfactory condition. LCS:marcia Job ID: [id number] Doc ID: [id number] Jerri Price M.D.
== END 2022-08-04 15:25 | disposition home or self-care (01) ==
LOC: ED 09:18 → MEDSUR 09:18
PROVIDERS: ADMIT Family Medicine Adult Medicine; ATTEND Family Medicine Adult Medicine